=== PATIENT | female | born 1980 | race African-American/Black ===

== ENCOUNTER 2022-03-21 16:36 | Emergency (ER) | payer MEDICAID, OTHER ==
[~2022-03-21] VITALS: Ht 170.2 cm; Wt 93.0 kg
[2022-03-21] MEDS ORDERED: MORPHINE SULFATE 4 MG/ML CPJ (NOT FOR IM USE) IV STA (16:59)
[2022-03-21] MEDS ORDERED: ONDANSETRON HCL 4MG/2ML INJ IV STA (16:59)
[2022-03-21] MEDS ORDERED: METHYLPREDNISOLONE SOD SUCC 125 MG/2 ML VIAL IV ONE (17:00)
[2022-03-21] MEDS ORDERED: CLINDAMYCIN 600 MG in DEXTROSE 5% WATER 50 ML IV ONE (17:00)
[2022-03-21] MEDS ORDERED: SODIUM CHLORIDE 0.9% 1,000 ML IV ONE (17:00)
[2022-03-21 17:33] LABS: BASOPHILS % 0.4 % (0.0-2.0); EOSINOPHILS % 1.5 % (0.0-5.0); HEMOGLOBIN. 11.3 g/dL (12.0-16.0); LYMPHOCYTES % 12.2 % (20.0-50.0); MEAN CORPUSCULAR HEMOGLOBIN 27.2 pg (28.0-32.0); MEAN CORPUSCULAR VOLUME 83.8 fL (81.0-99.0); MEAN PLATELET VOLUME 8.5 fl (7.4-10.4); MONOCYTES % 10.6 % (2.0-8.0); NEUTROPHILS % 75.3 % (40.0-76.0); PLATELET 345 x1000/uL (130-400); RED BLOOD CELL COUNT 4.18 mill/uL (4.2-5.4); RED CELL DISTRIBUTION WIDTH 19.4 % (11.6-14.6)
[2022-03-21 17:46] LABS: HCG SCREEN NEGATIVE
[2022-03-21 17:48] LABS: CHLORIDE 104 mEq/L (98-107)
[2022-03-21] MEDS ORDERED: POTASSIUM CHLORIDE 20MEQ TABLET SR PO ONE (18:15)
[2022-03-21] MEDS ORDERED: METHYLPREDNISOLONE SOD SUCC 125 MG/2 ML VIAL IV NR (20:45)
[2022-03-21] MEDS ORDERED: POTASSIUM CHLORIDE 20MEQ TABLET SR PO NR (20:45)
[2022-03-21] MEDS ORDERED: LIDOCAINE HCL/EPINEPHRINE 1%-EPI 1:100,000 20 ML VIAL INFIL ONE (20:45)
[2022-03-21] MEDS ORDERED: ONDANSETRON HCL 4MG/2ML INJ IV NR (20:45)
[2022-03-21] MEDS ORDERED: MORPHINE SULFATE 4 MG/ML CPJ (NOT FOR IM USE) IV NR (20:45)
[2022-03-21 21:01] VITALS: BP 161/80
[2022-03-21] MEDS ORDERED: HYDR-4001 MT (21:48)
[2022-03-21] MEDS ORDERED: CLIN-194 MT (21:48)
[2022-03-21] MEDS ORDERED: P20 MT (21:48)
== END 2022-03-21 22:13 | disposition home or self-care (01) ==
LOC: ER 16:36
DX: J36 Peritonsillar abscess (principal); E87.6 Hypokalemia; F12.10 Cannabis abuse, uncomplicated; J44.1 Chronic obstructive pulmonary disease with (acute) exacerbation; Z88.6 Allergy status to analgesic agent
CPT/HCPCS: 36415; 42700; 71045; 80053; 84484; 84703; 85025; 93005; 96365; 96375; 99285; J2270; J2405; J2930; J3490; J7030; J7060

== ENCOUNTER 2023-05-20 19:43 | Emergency (ER) | payer MEDICAID ==
[~2023-05-20] VITALS: Ht 170.2 cm; Wt 87.0 kg
[~2023-05-20 19:43] MED LIST: CLIN-194 MT; HYDR-4001 MT; P20 MT
[2023-05-20 20:04] VITALS: BP 152/111; PULSE 125; RESP 18; TEMP 98.3; O2SAT 98
[2023-05-20 20:41] LABS: BASOPHILS % 1.6 % (0.0-2.0); DIFFERENTIAL COMMENT 0; EOSINOPHILS % 2.6 % (0.0-5.0); HEMATOCRIT. 35.8 % (36.0-48.0); HEMOGLOBIN. 11.3 g/dL (12.0-16.0); LYMPHOCYTES % 25.3 % (20.0-50.0); MEAN CORPUSCULAR HEMOGLOBIN 24.3 pg (28.0-32.0); MEAN CORPUSCULAR HGB CONC 31.6 g/dL (31.0-37.0); MEAN CORPUSCULAR VOLUME 77.1 fL (81.0-99.0); MEAN PLATELET VOLUME 7.9 fl (7.4-10.4); MONOCYTES % 7.6 % (2.0-8.0); NEUTROPHILS % 62.9 % (40.0-76.0); PLATELET 448 x1000/uL (130-400); RED BLOOD CELL COUNT 4.64 mill/uL (4.2-5.4); RED CELL DISTRIBUTION WIDTH 18.7 % (11.6-14.6); WHITE BLOOD COUNT 8.5 x1000/uL (4.5-11.0)
[2023-05-20 20:46] LABS: CHLORIDE 112 mEq/L (98-107); INDEX HEMOLYSI 1 (1-3); INDEX ICTERIC 1 (1-4); INDEX LIPEMIC 1 (1-3); POTASSIUM 3.4 mEq/L (3.5-5.1); SODIUM 142 mEq/L (136-145)
[2023-05-20 20:57] LABS: ALANINE AMINOTRANSFERASE 24 IU/L (13-61); ALBUMIN 3.6 g/dL (3.4-5.0); ASPARTATE AMINOTRANSFERASE 13 IU/L (15-37); BILIRUBIN TOTAL 0.7 mg/dL (0.1-1.0); CALCIUM 8.5 mg/dL (8.5-10.1); CARBON DIOXIDE 26 mEq/L (21-32); CREATININE 0.6 mg/dL (0.6-1.3); GLUCOSE 116 mg/dL (70-105); PROTEIN TOTAL 7.2 g/dL (6.0-8.3); TROPONIN I HIGH SENSITIVITY 6 ng/L (<54); UREA NITROGEN BLOOD 11 mg/dL (7-21)
[2023-05-20 20:59] LABS: PROTHROMBIN TIME 10.4 sec (9.6-11.0)
== END 2023-05-21 00:37 | disposition left against medical advice (07) ==
LOC: ER 19:43
DX: R06.02 Shortness of breath (principal); Z53.21 Procedure and treatment not carried out due to patient leaving prior to being seen by health care provider
CPT/HCPCS: 36415; 71045; 80053; 84484; 85025; 93005; 99281

== ENCOUNTER 2024-09-10 00:14 | Emergency (ER) | payer SELFPAY ==
[~2024-09-10] VITALS: Ht 172.7 cm; Wt 69.0 kg
[2024-09-10 00:21] VITALS: TEMP 36.8; O2SAT 99
[2024-09-10 00:59] VITALS: BP 187/90; PULSE 89; RESP 18
[2024-09-10] MEDS: HYDROCODONE/ACETAMINOPHEN 5/325MG TABLET PO ONE (00:59)
[2024-09-10] MEDS ORDERED: CYCL10TA21 MT (01:59)
[2024-09-10] MEDS ORDERED: ACET-2708 MT (01:59)
== END 2024-09-10 02:39 | disposition home or self-care (01) ==
LOC: ER 00:14
DX: S80.11XA Contusion of right lower leg, initial encounter (principal); I10 Essential (primary) hypertension; J44.89 Other specified chronic obstructive pulmonary disease; F12.90 Cannabis use, unspecified, uncomplicated; Z98.890 Other specified postprocedural states; Z88.6 Allergy status to analgesic agent; Z90.49 Acquired absence of other specified parts of digestive tract; V09.9XXA Pedestrian injured in unspecified transport accident, initial encounter; Y93.89 Activity, other specified; Y92.89 Other specified places as the place of occurrence of the external cause; Y99.8 Other external cause status
CPT/HCPCS: 29515; 73590; 73610; 73630; 99284